=== PATIENT | female | born 2000 | race Caucasian/White ===

== ENCOUNTER 2021-08-18 19:07 | Inpatient (IN) ==
--- NOTE | 2021-08-18 19:48 | History & Physical Report ---
Date of Service August 18, 2021 Assessment & Plan (1) Vaginal bleeding in : Plan: Third trimester with an episode of bleeding, reported large amount at home, witnessed small amount here. Could be consistent with cervical ripening and loss of mucus plug / bloody show, could be partial abruption, could be labor. Rh positive mother. Noted maternal anemia several weeks ago, so will check CBC given reported large blood loss at home. Contractions detected on monitor and will monitor here for several hours to r/o labor, abruption, ongoing / accelerating bleeding. IV hydration to improve dehydration if that's what is causing uterine irritability on the monitor. status currently reassuring. History of Present Illness Primary Care Provider: Fara Chauhan MD 20yo at 35w2d, last seen in office two days ago. Patient is a relative of one of the L&D nurses, and initially called that nurse (Jai), and was advised to call the environmental control administrator MD. She called the answering service and stated that she was "bleeding and on the way to the hospital." As I received that message the patient was already arriving in a wheelchair at the doors of L&D. The patient was roomed in [facility] and an ultrasound machine and exam kit were prepared and waiting for her. She exited the bathroom with me gloved and waiting to check her. She noted that she had a large amount of bleeding starting 45 minutes earlier, accompanied by some disorganized and mild lower abdominal cramps that she was unable to time and did not think were cont ractions. She felt the baby moving earlier today but has not noted movement since the bleeding, though she attributes this to having "her mind racing" since then. She is also unsure if her water broke because when she first felt the liquid trickling she thought it was her water, then was alarmed to see it was red liquid. Allergies Allergy/AdvReac Type Severity Reaction Status Date / Time No Known Allergies Allergy Verified 08/18/21 19:32 Home Medications Medication Instructions Recorded Confirmed Type ondansetron 4 mg disintegrating 4 mg PO Q6H PRN #20 tab 01/29/21 08/18/21 Rx tablet prenat.vits,genoveva,[id number] 1 tab PO QAM 01/29/21 08/18/21 History ferrous sulfate PO 08/16/21 08/16/21 History Patient History Medical History No significant past medical history Surgical History H/O wisdom tooth extraction History of tonsillectomy Social History Smoking Status: Never smoker Tobacco Type: E-cigarettes / Vaping Smoking End Date: 01/2021; Hx Alcohol Use: No Hx Substance Use: No Preferred Language: Ukrainian Communication Ability: Effective Vault Maker Required: No Beliefs That Will Affect Care: None marital status: Single marital status details: Duy (23) [phone] Current Living Situation: Significant Other Current Living Situation Comment: lives with FOB, 1 dog current occupational status: employed current occupation: [employer] @ [employer] Other Information That Helps Us Care for You: No Feels Safe at Home: Yes Safety Concerns: Feels Safe At This Time Assistive Devices: Contacts Physical Exam Constitutional: Appears anxious but not in physical distress Gastrointestinal (Abdomen): Gravid, AGA, nontender Genitourinary: Patient arrives wearing a maxi pad with approximately a 2" x 3" stain of red/brown blood. Labia: small smear of blood at mons. Sterile speculum exam: blood mucus mix extruding in a stringy line from the external os, which is visibly maybe 5mm dilated. There is at least 2cm of length to the nulliparous cervix. The blood and mucus settles into the posterior fornix so that I cannot see a separate pool of clear fluid, but cannot be sure one is not obscured, so I collect and do an Amnisure test, which comes back negative. Gloved sterile cervix check: fingertip, thick, high, firm, midposition. Bedside ultrasound: Vertex position, placenta R lateral and without obviously visible abruption, fluid is present around fetus, DVP of at least 2cm without cord is present. FHT: Cat 1. [place]: quiet, no pattern at first; but with time on the monitor a Q2-3min pattern becomes more apparent. Discussion with BEATRIZ Phelps, who notes these palpate mild and patient is not distressed during them. Results & Data ([facility]) Vital Signs (Past 12 Hours) Vital Signs Pulse BP 08/18/21 19:33 100 H 112/59 L Coding Level of Care Code None Diagnoses Vaginal bleeding in O46.90
[2021-08-18] MEDS ORDERED: LACTATED RINGER'S 1,000 ML IV PRN (19:59)
[2021-08-18 20:44] LABS: Basophils # (auto) 0.03 K/uL (0-0.2); Basophils % (auto) 0.2 %; Eosinophils # (auto) 0.15 K/uL (0-0.5); Eosinophils % (auto) 1.1 %; Hematocrit (blood only) 27.6 % (37-47); Hemoglobin 8.8 g/dL (12.0-16.0); Immature Granulocytes # (auto) 0.16 K/uL (0.00-0.02); Immature Granulocytes % (auto) 1.2 %; Lymphocytes # (auto) 2.31 K/uL (1.2-3.4); Lymphocytes % (auto) 17.7 %; Mean Corpuscular Hemoglobin 26.9 pg (25-34); Mean Corpuscular Hgb Conc 31.9 g/dL (32-36); Mean Corpuscular Volume 84.4 fL (80-100); Mean Platelet Volume 10.6 fL (7.4-10.4); Monocytes # (auto) 0.81 K/uL (0.11-0.59); Monocytes % (auto) 6.2 %; Neutrophils # (auto) 9.59 K/uL (1.4-6.5); Neutrophils % (auto) 73.6 %; Platelet Count 221 K/uL (130-400); RDW Coefficient of Variation 14.6 % (11.5-14.5); RDW Standard Deviation 44.2 fL (36.4-46.3); Red Blood Count 3.27 M/uL (4.2-5.4); White Blood Count 13.05 K/uL (4.8-10.8)
[2021-08-18] MEDS ORDERED: SODIUM CHLORIDE 0.9% 250 ML IV PRN (23:38)
--- NOTE | 2021-08-18 23:38 | Labor Progress Brief Note ---
Date of Service August 18, 2021 Subjective Patient feels her contractions have become less painful. But her bleeding has recently begun to increase. Feeling FM. No LOF other than blood. Assessment & Plan (1) Placental abruption affecting delivery: Plan: Bleeding is increased. Currently status remains reassuring but toco has developed a regular pattern, and although her first interval exam was stable, sh yani is now showing cervical change. She is in labor with suspicion of abruption. I am currently on line with [facility] hoping to consult with M regarding their input on this case, but I am leaning towards moving to delivery via without taking time for BMTZ given the increase in her bleeding. FHT are currently category 1 but I doubt the patient can be considered stable for transport, with suspicion for abruption being top of differential at present. Dr. Kraft is being notified to come in to give care to this baby in anticipation of likely delivery here. The OR is being readied. ...A few minutes later I have now discussed with Dr. Johnson at [facility] and she agrees with proceeding directly to delivery due to suspected abruption. No delay for BMTZ or further workup is indicated. Patient will be counseled, consented, and delivery to proceed without delay. Admission and Anticipated Discharge Date Admission Date: August 18, 2021 Physical Exam Genitourinary: FHT remain category 1. [place] Q2 Vaginal bleeding has significantly increased, now in 20 minutes has saturated an area approximately 6" x 8" with bright red. Cervix has now changed to 1/50/-2 Results & Data ([facility]) Vital Signs (Past 12 Hours) Vital Signs Temp Pulse Resp BP 08/18/21 22:27 98.1 F 88 16 114/62 08/18/21 19:34 18 08/18/21 19:33 98.1 F 100 H 18 112/59 L Coding Level of Care Code None Diagnoses Placental abruption affecting delivery O45.90
--- NOTE | 2021-08-18 23:42 | Anesthesiology Consultation ---
Date of Service August 18, 2021 Assessment & Plan (1) Encounter for pre-operative examination: Chart Review Chart Review: Acceptable Risk for Surgery History Height/Weight Height: 5 ft 2 in Weight: 72.121 kg Allergies Allergy/AdvReac Type Severity Reaction Status Date / Time No Known Allergies Allergy Verified 08/18/21 19:32 Medications Home Medications Medication Instructions Recorded Confirmed Last Taken ondansetron 4 mg disintegrating 4 mg PO Q6H PRN #20 tab 01/29/21 08/18/21 Unknown tablet prenat.vits,genoveva,pwz-[id number] 1 tab PO QAM 01/29/21 08/18/21 08/18/21 08:00 ferrous sulfate PO 08/16/21 08/16/21 08/18/21 08:00 Active Medications Generic Name Dose Route Start Last Admin Trade Name Freq PRN Reason Stop Dose Admin Lactated Ringer's 1,000 mls @ 250 mls/hr 08/18/21 19:59 08/18/21 20:21 Lr IV 09/17/21 19:58 250 mls/hr .Q4H PRN Administration L&D Protocol Protocol Past Medical History Medical History No significant past medical history Past Surgical History Surgical History H/O wisdom tooth extraction History of tonsillectomy Social History Smoking Status: Never smoker Smoking End Date: 01/2021 Hx Alcohol Use: No Hx Substance Use: No Physical Exam Vital Signs Last Vital Signs Temp 36.7 C 08/18/21 22:27 Pulse 88 08/18/21 22:27 Resp 16 08/18/21 22:27 BP 114/62 08/18/21 22:27 Testing Laboratory Results 08/18/21 20:37
[2021-08-18] MEDS ORDERED: MoRPHine SULFATE PF 1 MG/ML 10 ML AMP/VIAL ONE (23:47)
[2021-08-19] MEDS ORDERED: ceFAZolin 2000MG 2,000 MG/15 ML SYR IV ONE
[2021-08-19] MEDS ORDERED: CITRIC ACID/SODIUM CITRATE 15 ML UDC PO ONE
[2021-08-19 00:06] LABS: Hematocrit (blood only) 27.3 % (37-47); Hemoglobin 8.8 g/dL (12.0-16.0); Mean Corpuscular Hemoglobin 27.3 pg (25-34); Mean Corpuscular Hgb Conc 32.2 g/dL (32-36); Mean Corpuscular Volume 84.8 fL (80-100); Mean Platelet Volume 10.2 fL (7.4-10.4); Platelet Count 203 K/uL (130-400); RDW Coefficient of Variation 14.5 % (11.5-14.5); RDW Standard Deviation 44.2 fL (36.4-46.3); Red Blood Count 3.22 M/uL (4.2-5.4); White Blood Count 12.97 K/uL (4.8-10.8)
[2021-08-19 00:22] LABS: Fibrinogen 299 mg/dl (184-400); Partial Thromboplastin Time 26.7 Seconds (21.0-31.0); Prothrombin Time 9.8 Seconds (9.0-12.0)
[2021-08-19 00:24] LABS: Alanine Aminotransferase 13 (12-78); Albumin Level 2.7 gm/dl (3.4-5.0); Aspartate Aminotransferase 10 U/L (15-37); BUN Creatinine Ratio 10.6 (10-20); Blood Urea Nitrogen 6 mg/dl (7-18); Calcium 8.5 mg/dl (8.5-10.1); Carbon Dioxide 24 mmol/L (21-32); Chloride 107 mmol/L (98-107); Creatinine Clr Calc Pharmacy 147.8 ml/min; Est GFR (African American) > 150.0 ml/min; Est GFR (Non-African American) 133.3 ml/min; Glucose 97 mg/dl (70-99); Potassium 3.8 mmol/L (3.5-5.1); Sodium 137 mmol/L (136-145)
[2021-08-19 00:27] LABS: Albumin Globulin Ratio 0.8 (0.9-2); Alkaline Phosphatase 117 U/L (45-117); Bilirubin,Total 0.4 mg/dl (0.2-1); Globulin 3.3 gm/dl (2.5-4.0)
[2021-08-19] MEDS ORDERED: PROPOFOL IV EMULSION 10 MG/ML 20 ML VIAL IV ONE (00:28)
[2021-08-19] MEDS ORDERED: ONDANSETRON INJ 2 MG/ML 2 ML VIAL ONE (00:28)
[2021-08-19] MEDS ORDERED: OXYTOCIN 10 UNITS/ML 10ML VIAL ONE ×3 (00:28→00:55)
[2021-08-19] MEDS ORDERED: ePHEDrine sulfate 50 MG/ML SYR ONE (00:28)
[2021-08-19] MEDS ORDERED: PHENYLEPHRINE 100MCG/ML 5ML SYR ONE (00:28)
[2021-08-19] MEDS ORDERED: METOCLOPRAMIDE HCL INJ 5 MG/ML 2 ML VIAL ONE (00:28)
[2021-08-19] MEDS ORDERED: ePHEDrine sulfate 50 MG/ML AMP IV PRN (00:33)
[2021-08-19] MEDS ORDERED: NALOXONE HCL 0.08 MG in SYRINGE 1.8 ML IV PRN (00:33)
[2021-08-19] MEDS ORDERED: NALOXONE HCL 1 MG in SODIUM CHLORIDE 0.9% 1000ML 1,000 ML IV PRN (00:33)
[2021-08-19] MEDS ORDERED: MoRPHine SULFATE 2 MG/ML CARP IV PRN (00:33)
[2021-08-19] MEDS ORDERED: MoRPHine SULFATE PF 1 MG/ML 10 ML AMP/VIAL INT SPINAL ONE (00:33)
[2021-08-19] MEDS ORDERED: NALBUPHINE HCL INJ 10 MG/ML AMP IV PRN (00:33)
[2021-08-19] MEDS ORDERED: PROMETHAZINE HCL 12.5 MG in SODIUM CHLORIDE 0.9% 50 ML IV PRN (00:33)
[2021-08-19] MEDS ORDERED: LACTATED RINGER'S 500 ML IV PRN (00:33)
[2021-08-19] MEDS ORDERED: NALOXONE HCL 0.4 MG/1 ML VIAL/CARP IV PRN (00:33)
[2021-08-19] MEDS ORDERED: ONDANSETRON INJ 2 MG/ML 2 ML VIAL IV PRN ×2 (00:33→18:36)
[2021-08-19] MEDS ORDERED: diphenhydrAMINE 50 MG/ML VIAL IV PRN ×2 (00:33→18:36)
[2021-08-19] MEDS ORDERED: DC INTRASPINAL MORPHINE SCH (00:45)
[2021-08-19] MEDS ORDERED: SODIUM CHLORIDE 0.9% 1000ML 1,000 ML IV SCH (00:45)
[2021-08-19] MEDS ORDERED: NO NARCOTICS OR SEDATIVES SCH (00:45)
[2021-08-19 01:11] LABS: Base Excess Cord Venous Blood -2.1 mEq/L (-7.7-1.9); Cord Venous Blood HCO3 24 mmol/L (18.4-26.8); Cord Venous Blood PCO2 49 mmHg (30.4-57.2); Cord Venous Blood PO2 24 mmHg (14.1-43.3); Cord Venous Blood pH 7.32 (7.20-7.44)
[2021-08-19 01:12] LABS: Base Excess Cord Arterial Bld -3.6 mEq/L (-9-1.8); CO2 Cord Arterial Blood 63 mmHg (39.1-73.5); HCO3 Cord Arterial Blood 25 mmol/L (19.7-28.5); O2 Saturation Cord Venous Bld < 68.0 % (<68); PO2 Cord Arterial Blood 28 mmHg (4.1-31.7); pH Cord Arterial Blood 7.22 (7.1-7.38)
[2021-08-19 01:13] LABS: Oxygen Sat Cord Arterial Blood < 60.0 % (<60)
--- NOTE | 2021-08-19 01:16 | Operative Report ---
PG Post Operative Report Pre & Post Diagnosis Operation Date: 08/19/21 00:30 Pre-Op Diagnosis: 1. Suspected abruption Post-Op Diagnosis: 1. Confirmed placental abruption 2. Delivery of live female child at 0034 I identified the patient and participated in the time-out.: Yes Procedure Operation Date: 08/19/21 00:30 Actual Procedures Primary low transverse section Surgeon Michelle Zuluaga MD Pharmacy Data Analyst Eliza Phelps RN Estimated Blood Loss 600 Findings Consistent with Post-Op Diagnosis Couvelaire uterus, most apparent on R DION. Blood inside uterine cavity outside the intact amnion, including clots up to christina size. Approximately 1/3 of placenta appeared to have been prematurely detached based on its appearance immediately upon extraction from the uterus. Specimens Placenta, cord blood, cord gases. Anesthesia Type Spinal Complications none Disposition Accompanied Patient To Recovery: Yes Disposition: L&D Description of Procedure The patient was placed operating table in the supine position with a leftward tilt. She was prepped and draped in standard sterile fashion. The anesthetic was tested and found to be adequate. A time-out was held, identifying correct patient, procedure, positioning and preoperative antibiotics. There were no concerns. A Pfannenstiel skin incision was made with a knife and taken down to the underlying layer of fascia. The fascia was incised in the midline with the knife and taken out laterally with scissors. The superior edge of the fascial incision was grasped, elevated and dissected off the underlying rectus both superiorly and inferiorly. The muscles were bluntly in the midline. The peritoneum was entered bluntly. The incision was then stretched. The bladder retractor was placed. The vesicouterine peritoneum was identified, entered with scissors and taken out laterally with scissors. The bladder flap was created digitally. A hysterotomy incision was created transversely in the lower uterine segment, final entry being accomplished in a blunt manner with the automatic packer operator's fingers. Blood and clots were encountered inside the myometrium but still outside the intact amnion. These were cleared away, then the amnion was deliberately ruptured for clear amniotic fluid. The automatic packer operator's hand was used to elevate the head to the hysterotomy. The head was delivered using mild fundal pressure and aided with a Kiwi suction cup, and the shoulders and body followed without difficulty. The cord was clamped and cut and the infant was then handed off to the awaiting pool installer. Cord segment was isolated and handed off for collection of cord blood gases, and cord blood was obtained. The placenta was Manually extracted. It appeared to have been approximately 1/3 prematurely based on its appearance with adherent clot and easy extrusion. Additionally, [place]velaire bruising was noted with greatest prominence over the R lower portion of the uterus. The uterus was exteriorized and cleared of all clot and debris with moistened laparotomy sponges. The hysterotomy incision was repaired in two layers, the first in a running locked layer, the second in an imbricating layer. The ovaries and tubes were seen to be normal bilaterally. The uterus was gently replaced in the abdomen, and the gutters were cleared of clot and debris. A final inspection of the hysterotomy revealed good hemostasis. The rectus muscles were allowed to reapproximate naturally. The fascia was then reapproximated with 1 Vicryl in a running nonlocked manner. The fascia was examined and found to be free of defect following closure. The subcutaneous tissue was copiously irrigated and reapproximated with 0-chromic, then the skin edges were closed with 4-0 monocryl in a subcuticular fashion. A dermabond dressing was applied. The torres was found to be draining clear yellow urine at completion of the procedure. I attest to the content of the Intraoperative Record and any orders documented t herein. Any exceptions are noted below. I attest to the content of the Intraoperative Record and any orders documented therein. Any exceptions are noted below. OB Procedure Charges 51530
[2021-08-19] MEDS ORDERED: SENNA 8.6 MG TAB PO PRN (01:19)
[2021-08-19] MEDS ORDERED: HYDROCORTISONE ACETATE 25 MG SUPP PR PRN (01:19)
[2021-08-19] MEDS ORDERED: DIPHTHERIA/TETANUS/PERTUSSIS 0.5 ML SYR/VIAL IM ONE (01:19)
[2021-08-19] MEDS ORDERED: MAGNESIUM HYDROXIDE SUSP 30 ML UDC PO PRN (01:19)
[2021-08-19] MEDS ORDERED: SUPERCREAM 0.870% 15 GM JAR EXT PRN (01:19)
[2021-08-19] MEDS ORDERED: BENZOCAINE 20% AER SPR 82.5 GM CAN EXT PRN (01:19)
[2021-08-19] MEDS ORDERED: OXYTOCIN 30 UNITS in LACTATED RINGER'S 1,000 ML IV SCH (01:19)
[2021-08-19 02:00] LABS: Amphetamines+Metham, Urine Neg (Neg); Barbiturates, Urine Neg (Neg); Benzodiazepine, Urine Neg (Neg); Cocaine, Urine Neg (Neg); MDMA (Ecstacy), Urine Neg (Neg); Methadone, Urine Neg (Neg); Opiate, Urine Neg (Neg); Phencyclidine, Urine Neg (Neg)
[2021-08-19] MEDS: KETOROLAC 30 MG/ML VIAL IV PRN ×3 (02:30→17:58)
--- NOTE | 2021-08-19 06:26 | Anesthesiology Progress Note ---
Date of Service August 19, 2021 Anesthesia Post Procedure Vital Signs Vital Signs: Temp Pulse Pulse Resp BP BP Pulse Ox 08/19/21 06:22 16 99 08/19/21 06:02 16 98 08/19/21 05:56 109 H 98 08/19/21 05:51 110 H 100 08/19/21 05:46 75 99 08/19/21 05:41 75 99 08/19/21 05:36 70 100 08/19/21 05:31 74 100 08/19/21 05:26 74 99 08/19/21 05:21 75 99 08/19/21 05:16 72 100 08/19/21 05:13 16 99 08/19/21 05:11 68 99 08/19/21 05:06 84 100 08/19/21 05:01 95 H 100 08/19/21 04:56 97 H 100 08/19/21 04:51 102 H 100 08/19/21 04:46 105 H 100 08/19/21 04:41 106 H 96 08/19/21 04:36 101 H 97 08/19/21 04:31 74 98 08/19/21 04:26 99 H 98 08/19/21 04:21 91 H 96 08/19/21 04:16 95 H 97 08/19/21 04:11 104 H 96 08/19/21 04:06 113 H 99 08/19/21 04:01 69 99 08/19/21 04:00 36.5 C 74 16 117/61 99 08/19/21 03:57 74 117/61 08/19/21 03:56 76 98 08/19/21 03:18 82 99 08/19/21 03:13 89 98 08/19/21 03:12 36.5 C 91 H 18 124/59 L 08/19/21 03:08 87 97 08/19/21 03:03 90 96 08/19/21 03:02 96 H 130/61 08/19/21 02:58 105 H 96 08/19/21 02:53 116 H 99 08/19/21 02:52 91 H 128/69 08/19/21 02:48 99 H 97 08/19/21 02:43 99 H 95 08/19/21 02:42 36.5 C 100 H 16 119/59 L 08/19/21 02:38 110 H 96 08/19/21 02:33 90 97 08/19/21 02:32 81 120/61 08/19/21 02:28 84 96 08/19/21 02:23 82 95 08/19/21 02:22 88 120/61 08/19/21 02:18 94 H 95 08/19/21 02:13 97 H 118/63 96 08/19/21 02:12 103 H 16 94 08/19/21 02:08 110 H 96 08/19/21 02:03 93 H 97 08/19/21 02:02 80 16 108/60 08/19/21 01:58 88 99 08/19/21 01:53 84 99 08/19/21 01:52 86 18 107/59 L 08/19/21 01:48 100 H 99 08/19/21 01:43 86 99 08/19/21 01:42 79 16 112/58 L 08/19/21 01:40 87 93 08/19/21 01:38 91 H 98 08/19/21 01:33 88 99 08/19/21 01:32 80 16 114/57 L 08/19/21 01:28 84 98 08/19/21 01:23 83 100 08/19/21 01:22 36.5 C 85 107/57 L 08/19/21 01:18 102 H 100 08/19/21 01:13 90 100 08/19/21 01:12 82 114/57 L 08/18/21 22:27 36.7 C 88 16 114/62 08/18/21 19:34 18 08/18/21 19:33 36.7 C 100 H 18 112/59 L Pain Intensity Lower Abdomen: Pain Intensity: 2 Transfer of Care Handoff Completed per policy Notes Mental Status: alert / awake / arousable Patient Amnestic to Procedure: Yes Nausea / Vomiting: adequately controlled Pain: adequately controlled Airway Patency, RR, SpO2: stable & adequate BP & HR: stable & adequate Hydration State: stable & adequate Neuraxial Anesthesia: was administered and sensory block is resolving Anesthetic Complications: no major complications apparent
[2021-08-19 06:53] LABS: Basophils # (auto) 0.02 K/uL (0-0.2); Basophils % (auto) 0.1 %; Eosinophils # (auto) 0.02 K/uL (0-0.5); Eosinophils % (auto) 0.1 %; Hematocrit (blood only) 25.7 % (37-47); Hemoglobin 8.1 g/dL (12.0-16.0); Immature Granulocytes # (auto) 0.12 K/uL (0.00-0.02); Immature Granulocytes % (auto) 0.7 %; Lymphocytes # (auto) 1.23 K/uL (1.2-3.4); Mean Corpuscular Hemoglobin 26.6 pg (25-34); Mean Corpuscular Hgb Conc 31.5 g/dL (32-36); Mean Corpuscular Volume 84.3 fL (80-100); Mean Platelet Volume 10.7 fL (7.4-10.4); Monocytes # (auto) 1.02 K/uL (0.11-0.59); Monocytes % (auto) 5.8 %; Neutrophils # (auto) 15.18 K/uL (1.4-6.5); Neutrophils % (auto) 86.3 %; Platelet Count 185 K/uL (130-400); RDW Coefficient of Variation 14.4 % (11.5-14.5); RDW Standard Deviation 43.8 fL (36.4-46.3); Red Blood Count 3.05 M/uL (4.2-5.4); White Blood Count 17.59 K/uL (4.8-10.8)
--- NOTE | 2021-08-19 07:56 | Communication Note ---
Date of Service: August 19, 2021 Patient and her mother seen in room this morning. Infant being transferred for NICU level care; vigorous at with good gases, but difficulty with respiratory issues afterwards and requiring higher level of support. Emotional support provided. Discussed findings of abruption present at delivery. Patient's Hgb this morning dropped to 8.1, from 8.8 pre op, but she is symptomatic with dizziness and nausea as well as tachycardia. Offered blood transfusion with discussion of risks including infection rates, allergic reaction, and review of consent form with patient and mother. Patient prefers to receive transfusion and consents to 2u. She is hoping for discharge from hospital tomorrow to join her infant. Incision c/d/i with dermabond. Fundus firm. Vitals and labs reviewed this morning. Routine care in addition to the transfusion today. Hopeful for discharge tomorrow on what will officially be POD1 as she delivered shortly after midnight.
[2021-08-19] MEDS ORDERED: SODIUM CHLORIDE 0.9% 250 ML IV PRN (08:22)
[2021-08-19] MEDS: DOCUSATE SODIUM 100 MG CAP PO SCH ×2 (08:45→20:42)
[2021-08-19] MEDS: PRENATAL VITAMIN 1 TAB PO SCH (08:45)
[2021-08-19] MEDS: FERROUS SULFATE 325 MG TAB PO SCH (08:45)
[2021-08-19] MEDS: SIMETHICONE 80 MG CHEW PO SCH ×4 (08:57→20:42)
[2021-08-19] MEDS ORDERED: LACTATED RINGER'S 1,000 ML IV SCH (09:30)
[2021-08-19 16:00] LABS: Hematocrit (blood only) 27.4 % (37-47); Mean Corpuscular Hemoglobin 27.6 pg (25-34); Mean Corpuscular Hgb Conc 32.8 g/dL (32-36); Mean Platelet Volume 10.8 fL (7.4-10.4); Platelet Count 185 K/uL (130-400); RDW Coefficient of Variation 14.5 % (11.5-14.5); RDW Standard Deviation 44.4 fL (36.4-46.3); Red Blood Count 3.26 M/uL (4.2-5.4); White Blood Count 13.86 K/uL (4.8-10.8)
[2021-08-19] MEDS ORDERED: diphenhydrAMINE Capsule 25 MG CAP PO PRN (18:36)
[2021-08-19] MEDS ORDERED: PROMETHAZINE HCL 25 MG in SODIUM CHLORIDE 0.9% 50 ML IV PRN (18:36)
[2021-08-19] MEDS ORDERED: KETOROLAC 30 MG/ML VIAL IV PRN (18:36)
[2021-08-19] MEDS ORDERED: MEPERIDINE HCL 50 MG/ML CARP IV PRN (18:36)
[2021-08-19] MEDS: oxyCODONE/ACETAMINOPHEN 5mg/325mg TAB PO PRN ×2 (18:41→23:47)
[2021-08-19] MEDS: IBUPROFEN 600 MG TAB PO PRN (23:47)
[2021-08-20] MEDS: oxyCODONE/ACETAMINOPHEN 5mg/325mg TAB PO PRN ×2 (04:03→09:03)
[2021-08-20] MEDS: IBUPROFEN 600 MG TAB PO PRN ×2 (04:03→09:03)
--- NOTE | 2021-08-20 07:20 | Obstetrical Progress Note ---
Date of Service August 20, 2021 Assessment & Plan (1) examination following delivery: Patient technically day 1 but delivered yest at 1am . Wants to leave when allowed due to baby being in NICU in [place]. Jatinder po, voiding, pain control adeq. +flatus. will allow dc today if cont to do well. needs to spend some time learning to pump and pump script signed to be faxed by nurse so can get one at home. pt will fill out remainder of form. instructions reviewed, will need 6wk pp check. Day #:: 1 Subjective Ambulation: ambulating normally Voiding: no voiding problems Passing Gas:: Yes Diet Tolerance:: regular diet Lochia:: Small reports good pain control with meds. wants to be d/c'd today as baby is in [place]. requiring ventilation support with prematurity. pt says she had wanted to breastfeed but has not been shown how to pump etc. aware we can give her breast pump script. she had 2uPRBCs yest and hgb 9 and doing ok. no sob, no cp. no n/v. Constitutional: + as per Subjective / HPI Physical Exam Constitutional WD/WN, vitals as above Respiratory normal respiratory effort, lungs clear to auscultation Cardiovascular Rate/Rhythm: regular rate and regular rhythm Gastrointestinal (Abdomen) Inspection/Auscultation: abdomen normal to inspection and + abdominal surgical incision (c/d/i with dermabond) Percussion/Palpation: abdomen soft Fundus firm 1cm down Musculoskeletal nt calves no edema Neurologic grossly normal Psychiatric A+Ox3, euthymic affect Results & Data ([facility]) Vital Signs (Past 12 Hours) Vital Signs Temp Pulse Resp BP Pulse Ox 08/20/21 00:00 97.7 F 86 18 117/68 98 08/19/21 19:30 98.2 F 82 18 120/70 98
[2021-08-20] MEDS: PRENATAL VITAMIN 1 TAB PO SCH (08:19)
[2021-08-20] MEDS: DOCUSATE SODIUM 100 MG CAP PO SCH (08:19)
[2021-08-20] MEDS: SIMETHICONE 80 MG CHEW PO SCH (08:20)
[2021-08-20] MEDS: FERROUS SULFATE 325 MG TAB PO SCH (08:20)
--- NOTE | 2021-08-22 12:52 | Discharge Summary ---
Date of Service August 22, 2021 Admission HPI Per Admitting Provider 20yo at 35w2d, last seen in office two days ago. Patient is a relative of one of the L&D nurses, and initially called that nurse (Jai), and was advised to call the cement contractor MD. She called the answering service and stated that she was "bleeding and on the way to the hospital." As I received that message the patient was already arriving in a wheelchair at the doors of L&D. The patient was roomed in [facility] and an ultrasound machine and exam kit were prepared and waiting for her. She exited the bathroom with me gloved and waiting to check her. She noted that she had a large amount of bleeding starting 45 minutes earlier, accompanied by some disorganized and mild lower abdominal cramps that she was unable to time and did not think were contractions. She felt the baby moving earlier today but has not noted movement since the bleeding, though she attributes this to having "her mind racing" since then. She is also unsure if her water broke because when she first felt the liquid trickling she thought it was her water, then was alarmed to see it was red liquid. Discharge Data Consultations 08/18/21 23:38 Consult Anesthesiology Stat Procedures Performed Operation Date: 08/19/21 00:30 Actual Procedures p Section in LD - Michelle Zuluaga MD Hospital Course (1) examination following delivery: Patient initially ft/th/hi on arrival with T Cat 1 and toco irregular, vertex presentation, and light vaginal bleeding. Unclear if abruption vs bloody show associated with contractions vs cervical bleeding due to trauma/intercourse/etc. No large volume bleed seen. Observation for a few hours initially showed minimal bleeding and no cervical change, but toco became more active, so observation continued. Within the next few hours cervical change and increase in bleeding were noted. Abruption was then diagnosed and was performed, confirming abruption in progress involving approximately 1/3 of the placenta, and delivering a viable, vigorous infant with good cord gas values. began to show respiratory support needs c/w prematurity in the hours following delivery and was transferred for NICU care. Mom received 2u pRBC for symptomatic anemia with Hgb 8.1, and was then released on POD1 but >24 hours from delivery at her own request to go be with her at [facility]. Coding Level of Care Code None Diagnoses examination following delivery Z39.2
== END 2021-08-20 09:40 | disposition home or self-care (01) | DRG 788 ==
LOC: OPB 19:07 → 4S2 19:07